=== PATIENT | female | born 1980 | race Caucasian/White ===

== ENCOUNTER 2016-12-27 00:54 | Emergency (ER) | payer OTHER, MEDICAID ==
[2016-12-27 01:09] VITALS: RESP 16; O2SAT 96
[2016-12-27] MEDS ORDERED: LIDOCAINE 1% 120 MG in NS 100 ML IV ONE (01:46)
[2016-12-27] MEDS ORDERED: KETOROLAC 15 MG/1 ML SDV IVP ONE (01:46)
--- NOTE | 2016-12-27 01:49 | EDPHY ---
H & P Stated Complaint: back pain- Time Seen by Provider: 12/27/16 00:56 HPI/ROS: HPI The patient presents with right-sided flank pain which has been present since 11 :00 p.m. and awoke her from sleep. She is brought in by ambulance and received 100 mcg of fentanyl in the field with some improvement in her symptoms. The pain has been intermittent for the last 1-2 weeks but became worse tonight. It is a shooting pain which is worse with changes in position. She has had mild constipation lately. She has tried taking Klonopin without any relief in her pain. She denies any nausea, vomiting, dysuria, hematuria, trauma or injury, nausea or vomiting. She recently increased her Topamax and prazosin for her PTSD. She says the pain does not feel like her usual fibromyalgia. REVIEW OF SYSTEMS Constitutional: No fever, no chills. Eyes: No discharge. ENT: No sore throat. Cardiovascular: No chest pain, no palpitations. Respiratory: No cough, no shortness of breath. Gastrointestinal: No abdominal pain, no vomiting. Genitourinary: No hematuria. Musculoskeletal: No back pain. Skin: No rashes. Neurological: No headache. PMHx: PTSD, fibromyalgia, somatoform disorder PHYSICAL General Appearance: Alert, no distress Eyes: Pupils equal and round no pallor or injection ENT, Mouth: Mucous membranes moist Respiratory: There are no retractions, lungs are clear to auscultation Cardiovascular: Regular rate and rhythm Gastrointestinal: Abdomen is soft and non-tender, no masses, bowel sounds normal Back: There is right flank tenderness and CVA tenderness, there is tenderness to her lateral right abdomen without any rebound or guarding Neurological: A&O, moves all extremities Skin: Warm and dry, no rashes Musculoskeletal: Neck is supple non tender Extremities: symmetrical, full range of motion Psychiatric: Patient is oriented X 3, there is no agitation Source: Patient, EMS - Personal History LMP (Females 10-55): Extended Cycle BCP/Inj Current Tetanus Diphtheria and Acellular Pertussis (TDAP): Yes Tetanus Vaccine Date: thinks 2010 - Medical/Surgical History Hx Asthma: No Hx Chronic Respiratory Disease: No Hx Diabetes: No Hx Cardiac Disease: No Hx Renal Disease: No Hx Cirrhosis: No Hx Alcoholism: No Hx HIV/AIDS: No Hx Splenectomy or Spleen Trauma: No Other PMH: PMH- FIBROMYALGIA, ANXIETY, DEPERESSION PTSD. PSH- DANIELA - Social History Smoking Status: Former smoker Constitutional: Initial Vital Signs Temperature (C) 36.9 C 12/27/16 01:07 Heart Rate 84 12/27/16 01:07 Respiratory Rate 16 12/27/16 01:07 Blood Pressure 114/69 12/27/16 01:07 O2 Sat (%) 96 12/27/16 01:07 O2 Delivery Mode Room Air Allergies/Adverse Reactions: No Known Allergies Allergy (Verified 12/27/16 01:05) Home Medications: Medication Instructions Recorded DULoxetine [Cymbalta 60 MG (*)] 60 mg PO DAILY 12/07/13 Herbals/Supplements -Info Only 1 ea PO DAILY 02/19/14 Aripiprazole 10/12/15 Chantix 10/12/15 GABAPENTIN 10/12/15 Melatonin 10/12/15 PARoxetine HCL 10/12/15 Topiramate 10/12/15 Vitamin D3 10/12/15 traMADol 10/12/15 Abilify 12/27/16 Klonopin 12/27/16 Lyrica 12/27/16 Wellbutrin Sr 12/27/16 Medical Decision Making Differential Diagnosis: This is a 36-year-old female who has a history of fibromyalgia, PTSD who presents brought in by ambulance for right-sided flank pain which has been present for the last few weeks though worse tonight. Differential diagnosis includes had ureterolithiasis, pyelonephritis, choledocholithiasis given that the patient is status post cholecystectomy, muscle spasm. In the emergency department, the patient received Toradol and lidocaine for pain with improvement in her symptoms. Labs were checked and were unremarkable with no elevations in her liver tests and no sign of urinary tract infection or hematuria. I discussed with the patient. I explained that the pain could be muscular. She did explain that she is under a significant amount of stress currently and wonders if this is causing her pain. I explained that this is a possibility allergy. She feels well enough to go home and will be discharged with follow up with her primary care doctor. - Data Points Laboratory Results: Laboratory Results 12/27/16 01:00 12/27/16 01:00 12/27/16 12/27/16 12/27/16 02:47 01:00 01:00 WBC 10.11 10^3/uL H 10^3/uL (3.80-9.50) RBC 4.49 10^6/uL 10^6/uL (4.18-5.33) Hgb 15.4 g/dL g/dL (12.6-16.3) Hct 45.5 % % (38.0-47.0) MCV 101.3 fL H fL (81.5-99.8) MCH 34.3 pg H pg (27.9-34.1) MCHC 33.8 g/dL g/dL (32.4-36.7) RDW 12.5 % % (11.5-15.2) Plt Count 309 10^3/uL 10^3/uL (150-400) MPV 10.8 fL fL (8.7-11.7) Neut % (Auto) 55.7 % % (39.3-74.2) Lymph % (Auto) 33.8 % % (15.0-45.0) Slope % (Auto) 7.0 % % (4.5-13.0) Eos % (Auto) 2.1 % % (0.6-7.6) Baso % (Auto) 1.0 % % (0.3-1.7) Nucleat RBC Rel Count 0.0 % % (0.0-0.2) Absolute Neuts (auto) 5.63 10^3/uL 10^3/uL (1.70-6.50) Absolute Lymphs (auto) 3.42 10^3/uL H 10^3/uL (1.00-3.00) Absolute Monos (auto) 0.71 10^3/uL 10^3/uL (0.30-0.80) Absolute Eos (auto) 0.21 10^3/uL 10^3/uL (0.03-0.40) Absolute Basos (auto) 0.10 10^3/uL 10^3/uL (0.02-0.10) Absolute Nucleated RBC 0.00 10^3/uL 10^3/uL (0-0.01) Immature Gran % 0.4 % % (0.0-1.1) Immature Gran # 0.04 10^3/uL 10^3/uL (0.00-0.10) Sodium 145 mEq/L H mEq/L (134-144) Potassium 4.1 mEq/L mEq/L (3.5-5.2) Chloride 110 mEq/L mEq/L (97-110) Carbon Dioxide 21 mEq/l L mEq/l (22-31) Anion Gap 14 mEq/L mEq/L (8-16) BUN 18 mg/dL mg/dL (7-23) Creatinine 1.1 mg/dL H mg/dL (0.6-1.0) Estimated GFR 56 Glucose 81 mg/dL mg/dL (70-100) Calcium 9.7 mg/dL mg/dL (8.5-10.4) Total Bilirubin 0.6 mg/dL mg/dL (0.1-1.4) AST 42 IU/L IU/L (14-46) ALT 45 IU/L IU/L (9-52) Alkaline Phosphatase 56 IU/L IU/L (38-126) Total Protein 7.9 g/dL g/dL (6.3-8.2) Albumin 4.8 g/dL g/dL (3.5-5.0) Urine Color YELLOW Urine Appearance HAZY Urine pH 5.0 (5.0-7.5) Ur Specific [place] 1.017 (1.002-1.030) Urine Protein NEGATIVE (NEGATIVE) Urine Ketones NEGATIVE (NEGATIVE) Urine Blood 1+ H (NEGATIVE) Urine Nitrate NEGATIVE (NEGATIVE) Urine Bilirubin NEGATIVE (NEGATIVE) Urine Urobilinogen NEGATIVE EU EU (0.2-1.0) Ur Leukocyte Esterase NEGATIVE (NEGATIVE) Urine RBC 1-3 /hpf /hpf (0-3) Urine WBC 1-3 /hpf /hpf (0-3) Ur Epithelial Cells 2+ /lpf H /lpf (NONE-1+) Urine Mucus TRACE /lpf /lpf (NONE-1+) Urine Glucose NEGATIVE (NEGATIVE) Medications Given: Discontinued Medications Lidocaine HCl 120 mg/ Sodium (Chloride) 112 mls @ 600 mls/hr IV EDNOW ONE Stop: 12/27/16 01:57 Last Admin: 12/27/16 02:22 Dose: 112 mls Ketorolac Tromethamine (Toradol) 15 mg IVP EDNOW ONE Stop: 12/27/16 01:47 Last Admin: 12/27/16 01:59 Dose: 15 mg Lidocaine (Lidoderm 5%) 1 ea TD EDNOW ONE Stop: 12/27/16 03:05 Last Admin: 12/27/16 03:12 Dose: 1 ea Departure - Departure Disposition: Home, Routine, Self-Care Clinical Impression: Right flank pain Condition: Good Instructions: Flank Pain (ED) Additional Instructions: Your blood work today fortunately looked normal. There is no sign of urinary tract infection or kidney stone. I feel your pain could be related to a muscle spasm. Please monitor it closely, if your worse in any way, please return to the emergency room. Otherwise, please follow-up with your doctor in 1-2 days. Referrals: Bella Rader NP [Primary Care Provider] - As per Instructions
[2016-12-27 01:59] LABS: % IMMATURE GRANULYOCYTES 0.4 % (0.0-1.1); ABSOLUTE IMMATURE GRANULOCYTES 0.04 10^3/uL (0.00-0.10); ADD DIFF? NO; ADD MORPH? NO; ADD SCAN? NO; ATYPICAL LYMPHOCYTE FLAG 0 (0-99); FRAGMENT RBC FLAG 0 (0-99); HEMATOCRIT 45.5 % (38.0-47.0); HEMOGLOBIN 15.4 g/dL (12.6-16.3); LEFT SHIFT FLG 0 (0-99); LIPEMIA HEMOLYSIS FLAG 90 (0-99); MEAN CELL HEMOGLOBIN 34.3 pg (27.9-34.1); MEAN CELL HEMOGLOBIN CONCENTR. 33.8 g/dL (32.4-36.7); MEAN CELL VOLUME 101.3 fL (81.5-99.8); MEAN PLATELET VOLUME 10.8 fL (8.7-11.7); PLATELET CLUMPS FLAG 20 (0-99); PLATELET COUNT 309 10^3/uL (150-400); RED BLOOD CELL COUNT 4.49 10^6/uL (4.18-5.33); RED CELL DISTRIBUTION WIDTH 12.5 % (11.5-15.2)
[2016-12-27 02:00] LABS: ALANINE AMINOTRANSFERASE 45 IU/L (9-52); ALBUMIN 4.8 g/dL (3.5-5.0); ALKALINE PHOSPHATASE 56 IU/L (38-126); ANION GAP 14 mEq/L (8-16); ASPARTATE AMINOTRANSFERASE 42 IU/L (14-46); BILIRUBIN,TOTAL 0.6 mg/dL (0.1-1.4); CALCIUM 9.7 mg/dL (8.5-10.4); CARBON DIOXIDE 21 mEq/l (22-31); CHLORIDE 110 mEq/L (97-110); CREATININE 1.1 mg/dL (0.6-1.0); GLOMERULAR FILTRATION RATE 56; GLUCOSE 81 mg/dL (70-100); POTASSIUM 4.1 mEq/L (3.5-5.2); SODIUM 145 mEq/L (134-144); TOTAL PROTEIN 7.9 g/dL (6.3-8.2)
[2016-12-27 02:55] LABS: COLOR YELLOW; LEUKOCYTE ESTERASE,URINE NEGATIVE (NEGATIVE); NITRITE,URINE NEGATIVE (NEGATIVE)
[2016-12-27 02:57] LABS: MUCUS TRACE /lpf (NONE-1+)
[2016-12-27] MEDS ORDERED: LIDOCAINE 5% 1 EA PATCH TD ONE (03:04)
[2016-12-27 07:52] VITALS: BP 101/66; PULSE 62; TEMP 97.9
[2016-12-27] MEDS ORDERED: PATCH REMOVAL 1 EA PATCH TD SCH (21:00)
== END 2016-12-27 03:21 | disposition home or self-care (01) ==
LOC: EDUNIT#
DX: R10.9 Unspecified abdominal pain (principal); Z87.891 Personal history of nicotine dependence
CPT/HCPCS: 96365; 96375; 99284; J1885

== ENCOUNTER 2016-12-27 19:07 | Emergency (ER) | payer OTHER, MEDICAID ==
[2016-12-27 19:16] VITALS: TEMP 98.2
[2016-12-27] MEDS ORDERED: LIDOCAINE 5% 1 EA PATCH TD ONE (20:02)
[2016-12-27] MEDS ORDERED: IBUPROFEN 600 MG TAB PO ONE (20:02)
--- NOTE | 2016-12-27 20:07 | EDPHY ---
H & P Time Seen by Provider: 12/27/16 19:07 HPI/ROS: CHIEF COMPLAINT: Low back pain HISTORY OF PRESENT ILLNESS: 36-year-old female with a history of PTSD and fibromyalgia presents with low back pain. Onset of low back pain several days ago. The low back pain increases with movement and bending. No radiation of pain, numbness or weakness. She was seen in this emergency department early this morning and given ibuprofen and lidocaine patch for the pain. These medications made her pain better. However, she took the lidocaine patch off when she went home. She now complains of recurrent pain and requests a stronger pain medication. REVIEW OF SYSTEMS: Constitutional: No fever, no chills Eyes: No visual changes ENT: No sore throat Respiratory: No cough, no shortness of breath Cardiac: No chest pain Gastrointestinal: No nausea, no vomiting, no abdominal pain Genitourinary: No hematuria, no dysuria Musculoskeletal: No leg pain or swelling Skin: No rash Neurological: No headache, no numbness, no weakness Psychiatric: Anxiety Past Medical/Surgical History: Fibromyalgia PTSD Social History: Lives in own home Smoking Status: Former smoker Physical Exam: General Appearance: Sleeping, arouses to tactile stimuli Eyes: Pupils equal and round, 3 mm no conjunctival pallor or injection ENT, Mouth: Mucous membranes moist Neck: Normal inspection Respiratory: Lungs are clear to auscultation Cardiovascular: Regular rate and rhythm Gastrointestinal: Abdomen is soft and nontender Back: Normal inspection, right paraspinous tenderness in the lumbar area Neurological: A&O, motor 5/5, sensory intact to light touch, normal gait Skin: Warm and dry Extremities: Nontender, no pedal edema Psychiatric: flat affect Constitutional: Initial Vital Signs Temperature (C) 36.8 C 12/27/16 19:13 Heart Rate 76 12/27/16 19:13 Respiratory Rate 14 12/27/16 19:13 Blood Pressure 113/60 12/27/16 19:13 O2 Sat (%) 96 12/27/16 19:13 O2 Delivery Mode Room Air Allergies/Adverse Reactions: No Known Allergies Allergy (Verified 12/27/16 01:05) Home Medications: Medication Instructions Recorded DULoxetine [Cymbalta 60 MG (*)] 60 mg PO DAILY 12/07/13 Herbals/Supplements -Info Only 1 ea PO DAILY 02/19/14 Aripiprazole 10/12/15 Chantix 10/12/15 GABAPENTIN 10/12/15 Melatonin 10/12/15 PARoxetine HCL 10/12/15 Topiramate 10/12/15 Vitamin D3 10/12/15 traMADol 10/12/15 Abilify 12/27/16 Klonopin 12/27/16 Lyrica 12/27/16 Wellbutrin Sr 12/27/16 Medical Decision Making - Diagnostics Imaging Results: Lumbar spine x-ray independently reviewed by me reveals no acute fracture. ED Course/Re-evaluation: This patient presents by EMS with a complaint of low back pain. However, I question the truth fullness of her concern, as she is sleeping when I enter the room. In addition she occasionally grimaces with movement, but then with other movement and with standing from a seated position, she appears to have no pain. She requests narcotics, however, I denied this request and explained our narcotic policy. Ibuprofen and lidocaine patch given. I ordered a lumbar spine x-ray at her request. X-ray results discussed with the patient. Again our narcotic policy was discussed with her and I told her that we would not prescribe narcotics for fibromyalgia or for low back pain. - Data Points Medications Given: Discontinued Medications Ibuprofen (Motrin) 600 mg PO EDNOW ONE Stop: 12/27/16 20:03 Last Admin: 12/27/16 20:10 Dose: 600 mg Lidocaine (Lidoderm 5%) 1 ea TD EDNOW ONE Stop: 12/27/16 20:03 Last Admin: 12/27/16 20:10 Dose: 1 ea Departure - Departure Disposition: Home, Routine, Self-Care Clinical Impression: Low back pain Condition: Good Instructions: Low Back Strain (ED) Additional Instructions: Ibuprofen 600 mg 3 times daily while the pain persists. Buy lidocaine patches at the store and use as directed. Referrals: [facility],. [Clinic] - 3-4 days, if not improved
[2016-12-27 20:55] VITALS: BP 118/74; PULSE 77; RESP 18; O2SAT 95
[2016-12-27] MEDS ORDERED: PATCH REMOVAL 1 EA PATCH TD SCH (21:00)
== END 2016-12-27 20:55 | disposition home or self-care (01) ==
LOC: EDUNIT#
DX: M54.5 Low back pain (principal); Z87.891 Personal history of nicotine dependence

== ENCOUNTER → 2017-10-06 | Outpatient (CLI) | payer OTHER, MEDICAID | LOC: FCPNEURO 20:00 | PROVIDERS: ATTEND Psychiatry & Neurology Sleep Medicine | DX: G47.31 Primary central sleep apnea (principal); G47.33 Obstructive sleep apnea (adult) (pediatric) ==

== ENCOUNTER → 2017-12-23 | Outpatient (CLI) | payer OTHER, MEDICAID | LOC: FCPNEURO 22:55 | PROVIDERS: ATTEND Psychiatry & Neurology Sleep Medicine | DX: G47.31 Primary central sleep apnea (principal) ==

== ENCOUNTER → 2018-09-19 | Outpatient (CLI) | payer OTHER, MEDICAID | LOC: FCPNEURO 20:00 ==